=== PATIENT | male | born 1945 | race Caucasian/White ===

== ENCOUNTER 2023-07-15 17:24 | Emergency (ER) | payer OTHER ==
[~2023-07-15] VITALS: Ht 182.9 cm; Wt 77.1 kg
[2023-07-15 17:31] VITALS: BP_SYST 131; PULSE 68; RESP 18; TEMP 98.1; O2SAT 96
[2023-07-15] MEDS ORDERED: LIDOCAINE 2%, 20 ML MDV INJ ONE (20:15)
[2023-07-15] MEDS ORDERED: BACI15OI13 TP (21:48)
[2023-07-15 22:00] VITALS: BP_SYST 118; PULSE 61; RESP 18; TEMP 98.3; O2SAT 98
== END 2023-07-15 22:00 | disposition home or self-care (01) ==
LOC: SED 17:24
DX: S01.111A Laceration without foreign body of right eyelid and periocular area, initial encounter (principal); Z88.6 Allergy status to analgesic agent; Z79.899 Other long term (current) drug therapy; W18.02XA Striking against glass with subsequent fall, initial encounter; Y93.89 Activity, other specified; Y92.89 Other specified places as the place of occurrence of the external cause; Y99.8 Other external cause status
CPT/HCPCS: 99282; 12011; J2001